=== PATIENT | male | born 1970 | race African-American/Black ===

== ENCOUNTER 2018-02-26 08:37 | Emergency (ER) | payer MEDICAID ==
--- NOTE | 2018-02-26 08:58 | ED Physician Chart ---
ED Chief Complaint/HPI - Patient Information Date Seen:: 02/26/18 Time Seen:: 08:45 Chief Complaint:: headache History of Present Illness:: Patient's been having left-sided headache for the last 3 weeks. Headache occurs primarily when he lays down and when he does fall asleep the headache awakens him. No vomiting. No fever. Last week patient had a CAT scan of his head at [facility] and told it was normal. Patient last had significant headaches in 2009. Historian:: Patient Review:: Nurse's Note Reviewed ED Review of Systems - Review of Systems General/Constitutional: No fever, No chills, No weight loss, No weakness, No diaphoresis, No edema, No loss of appetite Skin: No skin lesions, No rash, No bruising Head: No headache, No light-headedness Eyes: No loss of vision, No pain, No diplopia ENT: No earache, No nasal drainage, No sore throat, No tinnitus Neck: No neck pain, No swelling, No thyromegaly, No stiffness, No mass noted Cardio Vascular: No chest pain, No palpitations, No PND, No orthopnea, No edema Pulmonary: No SOB, No cough, No sputum, No wheezing GI: No nausea, No vomiting, No diarrhea, No pain, No melena, No hematochezia, No constipation, No hematemesis G/U: No dysuria, No frequency, No hematuria Musculoskeletal: No bone or joint pain, No back pain, No muscle pain Endocrine: No polyuria, No polydipsia Psychiatric: No prior psych history, No depression, No anxiety, No suicidal ideation Hematopoietic: No bruising, No lymphadenopathy Allergic/Immuno: No urticaria, No angioedema Neurological: No paresthesia, Headache, No seizure, No dizziness, No confusion, No vertigo ED Past Medical History - Past Medical History Past Medical History: DM Family History: Diabetes Melitus Social History: Smoker, No Alcohol, Other (smokes 6-7 cigarettes a day) Surgical History: other (laparotomy 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 daily noted in tooth 19 without tenderness or swelling of the adjacent gum Neck: Nontender, Full ROM w/o pain, No JVD, No nuchal rigidity, No bruit, No mass, No stridor Respiratory: Nl effort/Exclusion, Clear to Auscultation, No Wheeze/Rhonchi/Rales Cardio Vascular: RRR, No murmur, gallop, rubs, NL S1 S2 GI: No tenderness/rebounding/guarding, No organomegaly, No hernia, Normal BS's, Nondistended, No mass/bruits, No McBurney tenderness : No CVA tenderness Extremities: No tenderness or effusion, Full ROM, normal strength in all extremities, No edema, Normal digits & nails Neuro/Psych: Alert/oriented, DTR's symmetric, Normal sensory exam, Normal motor strength, Judgement/insight normal, Mood normal, Normal gait, No focal deficits Misc: Normal back, No paraspinal tenderness ED Assessment - Assessment General Assessment: At 0930 patient was sleeping. When awakened he said his headache was slightly improved. I instructed the patient and his significant other that he should request a referral by his primary care physician to a neurologist. Sometimes a dental georgette can cause pain on one side of the head and patient does have a dental georgette of tooth 19 but there is no adjacent gum tenderness suggesting a peridontal abscess. I emphasized that he also needs to see a dentist. ED Septic Shock - . Is Septic Shock (SBP<90, OR Lactate>4 mmol\\L) present?: No ED Reassessment (Disposition) - Reassessment Reassessment Condition:: Improved - Diagnosis Diagnosis:: Nonspecific cephalgia; dental georgette tooth 19 - Aftercare/Follow up Instructions Aftercare/Follow-Up Instructions:: Refer to Discharge Instructions - Patient Disposition Discharge/Transfer:: Home Condition at Disposition:: Stable, Improved
== END 2018-02-26 09:45 | disposition home or self-care (01) ==
LOC: ER 08:37
DX: R51 Headache (principal); K02.9 Dental caries, unspecified; E11.9 Type 2 diabetes mellitus without complications; F17.210 Nicotine dependence, cigarettes, uncomplicated
CPT/HCPCS: 99283; 96372; 36416; 82948; J1885; Z7502